=== PATIENT | male | born 1995 | race Hispanic/Latino ===

== ENCOUNTER 2019-09-10 15:42 | Inpatient (IN) | payer SELFPAY ==
[~2019-09-10] VITALS: Ht 167.6 cm; Wt 80.0 kg
--- NOTE | 2019-09-10 15:45 | NUR ---
PT TO ROOM VIA WHEELCHIAR. PT DIAPHORETIC.
--- NOTE | 2019-09-10 16:00 | NUR ---
PT PALE AND DIAPHORETIC, C/O SUDDEN ONSET PERIUMBILICAL DISCOMFORT THAT STARTED THIS AM. PT DENIES DIARRHEA OR CONSTIPATION. PT ADMITS SLIGHT NAUSEA DENIES EMESIS. PT STATES HE "WAS WORKING IN THE [employer] TODAY".
[2019-09-10 16:12] LABS: HEMATOCRIT 43.9 % (39.0-50.0); HEMOGLOBIN 15.7 g/dl (14.0-18.0); IMMATURE GRANULOCYTES 0.6 % (0.0-5.0); MEAN CELL VOLUME 85.4 fL CALC (80.0-100.0); MEAN CORPUSCULAR HGB 30.5 pG CALC (26.0-32.0); MEAN CORPUSCULAR HGB CONC 35.8 g/dL CAL (32.0-36.0); NEUT# 8.55 thou/uL (1.82-7.42); RED BLOOD COUNT 5.14 mill/uL (4.70-6.10); RED CELL DISTRI WIDTH 12.5 % (11.5-15.5)
[2019-09-10 16:26] LABS: ALBUMIN 5.4 g/dL (3.2-5.0); ALKALINE PHOSPHATASE 109 u/l (38-126); ANION GAP 19 (6-22 (CALC)); BILIRUBIN, TOTAL 0.9 mg/dL (0.0-1.4); BUN 16 mg/dL (9-20); BUN/CREATININE RATIO 18 (12-20 (CALC)); CARBON DIOXIDE 17 mmol/l (22-30); CHLORIDE 109 mmol/l (95-108); CPK 336 u/l (52-200); CREATININE 0.9 mg/dL (0.7-1.3); GFR > 60 ML/MIN (>=60 (CALC)); GFR FOR AFR.AMER. > 60 ML/MIN (>=60 (CALC)); POTASSIUM 3.9 mmol/l (3.5-5.1); SGOT/AST 55 u/l (17-59); SODIUM 140 mmol/l (137-146); TOTAL PROTEIN 8.5 g/dL (6.3-8.2)
--- NOTE | 2019-09-10 16:30 | NUR ---
PT RESTING SUPINE WITH HOB ELEVATED. STATES MORE COMFORTABLE AT THIS TIME. SKIN DRY AND PINK. TOLERATING IVF BOLUS X2 WELL. UPDATED ON POC AND WAIT TIME
--- NOTE | 2019-09-10 17:20 | NUR ---
PT GAVE 70CC DARK DOUGLAS URINE SAMPLE. SENT TO LAB. PT TO CT VIA STRETCHER.
[2019-09-10 17:23] LABS: LIPASE 35662 u/l (23-300)
[2019-09-10 17:29] LABS: URINE BILIRUBIN - DIPSTICK NEGATIVE (NEGATIVE); URINE BLOOD DIPSTICK NEGATIVE (NEGATIVE); URINE COLOR YELLOW; URINE GLUCOSE - DIPSTICK NEGATIVE (NEGATIVE); URINE KETONE NEGATIVE (NEGATIVE); URINE LEUK ESTERASE NEGATIVE (NEGATIVE); URINE NITRITE - DIPSTICK NEGATIVE (Negative); URINE PROTEIN - DIPSTICK TRACE mg/dL (NEG-TRACE); URINE SPECIFIC GRAVITY >=1.030; URINE UROBILINOGEN - DIPSTICK 0.2 E.U./dL (0.2)
[2019-09-10 17:32] LABS: COCAINE NEGATIVE (NEGATIVE); METHADONE NEGATIVE (NEGATIVE); TETRAHYDROCANNABIONOL NEGATIVE (NEGATIVE); TRICYLIC ANTIDEPRESSANTS NEGATIVE (NEGATIVE)
[2019-09-10 17:33] LABS: BARBITURATES NEGATIVE (NEGATIVE); OXCYCODONE NEGATIVE (NEGATIVE)
--- NOTE | 2019-09-10 17:45 | NUR ---
MEDICATED WITH MORPHINE 4MH IV ORDERED FOR ABD PAIN 01/07. DENIES NAUSEA
--- NOTE | 2019-09-10 18:36 | NUR ---
Pt advised that he is in pain. EDP notified. New orders received
--- NOTE | 2019-09-10 18:44 | NUR ---
Pt medicated per EDP order
--- NOTE | 2019-09-10 18:47 | NUR ---
EDP at bedside to discuss clinical findings with pt
--- NOTE | 2019-09-10 19:02 | NUR ---
MEDICATED FOR NAUSEA. PT STATES PAIN 4/10 FROM [facility]IN [facility]. PT ASKING FOR ICE. REPORT TO TARIQ JOHNSONRN
--- NOTE | 2019-09-10 19:30 | NUR ---
WAITING ON BED ASSIGNMENT AND ORDERS. NAUSEA IMPROVED.
--- NOTE | 2019-09-10 19:55 | NUR ---
Admission Note Report Given to: YU ROSEN Transported by: X Wheelchair Stretcher Transported with: X Nurse Transporter X Patent IV O2 Demographic Analyst Location: ICU X [facility]
--- NOTE | 2019-09-10 20:00 | NUR ---
PT ARRIVED TO UNIT FROM ED VIA WC, ACCOMPANIED BY RN. PT TO ROOM 261. AMBULATES TO BED W/ STEADY, BALANCED GAIT. ORIENTED TO UNIT AND ROOM.
[2019-09-10 20:23] VITALS: BP 121/76
--- NOTE | 2019-09-10 20:45 | NUR ---
PHYSICAL ASSEMENT COMPLETE. VS TAKEN BY HAND BINDER CUTTER UPON ARRIVAL TO UNIT ASSESSED. PLAN OF CARE REVIEWED W/ PT, DENIES QUESTIONS, VERBALIZES UNDERSTANDING. DENIES NEEDS AT THIS TIME. CALL BRUCE WITHIN REACH, AGREES TO CALL PRN. BED LOCKED IN LOW POSITION W/ BEDRAILS UP X2, ITEMS WITHIN REACH.
--- NOTE | 2019-09-11 00:15 | NUR ---
PT APPEARS TO BE SLEEPING COMFORTABLY. NO APPARENT DISTRESS. RESPIRATIONS REGULAR AND UNLABORED.CALL BRUCE REMAINS WITHIN REACH. BED REMAINS LOCKED IN LOW POSITION W/ BEDRAILS UP X2, ITEMS REMAIN WITHIN REACH.
[2019-09-11 04:04] VITALS: BP 155/88
--- NOTE | 2019-09-11 05:17 | NUR ---
VS TAKEN BY EMS MANAGER @ 0404 ASSESSED. PHYSICAL ASSESMENT REMAINS UNCHANGED. PT RESTING IN BED, APPEARS COMFORTABLE. DENIES PAIN, DENIES NEEDS @ THIS TIME. BED REMAINS LOCKED IN LOW POSITION W/ BEDRAILS UP X2, ITEMS REMAIN WITHIN REACH. CALL BRUCE REMAINS WITHIN REACH, AGREES TO CALL PRN.
--- NOTE | 2019-09-11 07:05 | NUR ---
REPORT RECEIVED FROM CHICHORN;PT RESTING IN SEMI FOWLERS POSITION;INTRODUCED SELF TO PT AND POC DISCUSSED,TRANSLATION PROVIDED BY [facility] [employer];PT DENIES ANY CURRENT PAIN OR NEEDS;RESPIRATIONS EVEN AND UNLABORED ON RA;IV FLUIDS INFUSING WITH EASE PER ORDER;ALL SAFETY PRECAUTIONS IN PLACE WITH BED IN THE LOWEST POSITION AND CALL LIGHT IN REACH;WILL CONTINUE TO MONITOR
[2019-09-11 07:06] LABS: HEMATOCRIT 42.8 % (39.0-50.0); HEMOGLOBIN 14.7 g/dl (14.0-18.0); MEAN CELL VOLUME 89.5 fL CALC (80.0-100.0); MEAN CORPUSCULAR HGB 30.8 pG CALC (26.0-32.0); MEAN CORPUSCULAR HGB CONC 34.3 g/dL CAL (32.0-36.0); RED BLOOD COUNT 4.78 mill/uL (4.70-6.10); RED CELL DISTRI WIDTH 13.2 % (11.5-15.5)
[2019-09-11 07:23] LABS: BILIRUBIN, TOTAL 0.7 mg/dL (0.0-1.4); BUN 16 mg/dL (9-20); BUN/CREATININE RATIO 24 (12-20 (CALC)); CHLORIDE 110 mmol/l (95-108); CREATININE 0.7 mg/dL (0.7-1.3); GFR > 60 ML/MIN (>=60 (CALC)); GFR FOR AFR.AMER. > 60 ML/MIN (>=60 (CALC)); POTASSIUM 4.2 mmol/l (3.5-5.1); SGOT/AST 30 u/l (17-59); SODIUM 140 mmol/l (137-146)
[2019-09-11 07:34] LABS: ALBUMIN 3.9 g/dL (3.2-5.0); ALKALINE PHOSPHATASE 54 u/l (38-126); ANION GAP 11 (6-22 (CALC)); CARBON DIOXIDE 23 mmol/l (22-30); LIPASE 5895 u/l (23-300); TOTAL PROTEIN 6.4 g/dL (6.3-8.2)
--- NOTE | 2019-09-11 08:40 | NUR ---
PT RESTING IN SEMI FOWLERS POSITION,A&O X3;VS OBTAINED AND ASSESSMENT COMPLETED;PT REPORTS MINIMAL ABDOMINAL PAIN RATING 3/10 ON THE PAIN SCALE,PAIN SCALE AND REPORTING EDUCATED;RESPIRATIONS EVEN AND UNLABORED ON RA,CLEAR LUNG SOUNDS NOTED;ABDOMEN SOFT ON PALPATION AND ACTIVE IN ALL 4 QUADRANTS,TENDERNESS NOTED;STRONG PEDAL PULSES;SKIN INTACT;#20G TO RAC INFUSING NS @ 150ML/HR,SITE APPEARS HEALTHY;PT DENIES ANY ADDITONAL NEEDS AND IS ENCOURAGED TO CALL FOR ASSISTANCE IF NEEDED;CALL LIGHT IN REACH;WILL CONTINUE TO MONITOR
[2019-09-11 08:41] VITALS: BP 133/71
--- NOTE | 2019-09-11 11:35 | NUR ---
PT RESTING IN SEMI FOWLERS POSITION REPORTING NAUSEA,PT TO BE MEDICATED WITH PRN ZOFRAN 4MG IVP;RESPIRATIONS EVEN AND UNLABORED ON RA;PT DENIES ANY CURRENT PAIN;IV FLUIDS INFUSING WITH EASE PER ORDER;ASSESSMENT REMAINS UNCHANGED AT THIS TIME;ENCOURAGED TO CALL FOR ASSISTANCE IF NEEDED;CALL LIGHT IN REACH;WILL CONTINUE TO MONITOR
[2019-09-11 15:00] VITALS: BP 129/67
--- NOTE | 2019-09-11 15:45 | NUR ---
PT RESTING IN SEMI FOWLERS POSITION;RESPIRATIONS EVEN AND UNLABORED ON RA;PT DENIES ANY CURRENT PAIN OR NEEDS;IV FLUIDS INFUSING WITH EASE PER ORDER;ASSESSMENT REMAINS UNCHANGED AT THIS TIME;PT ENCOURAGED TO CALL FOR ASSISTANCE IF NEEDED;FALL PRECAUTIONS IN PLACE WITH CALL LIGHT IN REACH;WILL CONTINUE TO MONITOR
--- NOTE | 2019-09-11 16:50 | NUR ---
PT MEDICATED WITH PRN DILAUDID 1MG IVP AND ZOFRAN 4MG IVP FOR NAUSEA AND ABDOMINAL PAIN RATING 6/10 ON THE PAIN SCALE,WILL MONITOR FOR EFFECTIVENESS
--- NOTE | 2019-09-11 19:00 | NUR ---
REPORT RECEIVED FROM Finn HENDRICKSON LPN, CARE OF PT TAKEN OVER.
[2019-09-11 19:45] VITALS: BP 131/78
--- NOTE | 2019-09-11 20:30 | NUR ---
PHYSICAL ASSEMENT COMPLETE. VS TAKEN BY CHIQUITA @ 1945 ASSESSED. PT REPORTS N/V W/ ANY PO INTAKE AND REPORTS CONSTIPATION. PLAN OF CARE REVIEWED W/ PT, DENIES QUESTIONS, VERBALIZES UNDERSTANDING. DENIES NEEDS AT THIS TIME. CALL BRUCE WITHIN REACH, AGREES TO CALL PRN. BED LOCKED IN LOW POSITION W/ BEDRAILS UP X2, ITEMS WITHIN REACH.
[2019-09-12 03:10] VITALS: BP 115/73
--- NOTE | 2019-09-12 04:00 | NUR ---
VS TAKEN BY BIGHT MAKER @ 0317 ASSESSED. PT APPEARS TO BE SLEEPING COMFORTABLY. NO APPARENT DISTRESS. RESPIRATIONS REGULAR AND UNLABORED.CALL BRUCE REMAINS WITHIN REACH. BED REMAINS LOCKED IN LOW POSITION W/ BEDRAILS UP X2, ITEMS REMAIN WITHIN REACH.
--- NOTE | 2019-09-12 07:05 | NUR ---
REPORT RECEIVED FROM YU VALENTINO;PT APPEARS TO BE SLEEPING IN SEMI FOWLERS POSITION;NO S/S OF DISTRESS NOTED;RESPIRATIONS EVEN AND UNLABORED ON RA;IV FLUIDS INFUSING WITH EASE PER ORDER;ALL SAFETY PRECAUTIONS IN PLACE WITH BED IN THE LOWEST POSITION AND CALL LIGHT IN REACH;WILL CONTINUE TO MONITOR
--- NOTE | 2019-09-12 07:28 | NUR ---
LAB AT BEDSIDE
--- NOTE | 2019-09-12 08:20 | NUR ---
PT RESTING IN SEMI FOWLERS POSITION,A&O X3;VS OBTAINED AND ASSESSMENT COMPLETED;PT REPORTS MINIMAL ABDOMINAL PAIN RATING 2/10 ON THE PAIN SCALE,PAIN SCALE AND REPORTING EDUCATED;RESPIRATIONS EVEN AND UNLABORED ON RA,CLEAR LUNG SOUNDS;ABDOMEN DISTENDED/SOFT ON PALPATION AND ACTIVE IN ALL 4 QUADRANTS;PT REQUESTS MEDICATION FOR CONSTIPATION, LAST BM 09/10/19;PT MEDICATED WITH PRN MOM AND PRUNE JUICE;STONG PEDAL PULSES;SKIN INTACT;#20G TO RAC INFUSING NS @ 150ML/HR,SITE APPEARS HEALTHY;PT DENIES ANY ADDITIONAL NEEDS AT THIS TIME AND IS ENCOURAGED TO CALL FOR ASSISTANCE IF NEEDED;CALL LIGHT IN REACH;WILL CONTINUE
[2019-09-12 08:21] VITALS: BP 127/78
--- NOTE | 2019-09-12 11:05 | NUR ---
AT BEDSIDE DISCUSSING POC.
--- NOTE | 2019-09-12 11:25 | NUR ---
PT RESTING IN SEMI FOWLERS POSITION WATCHING TV;RESPIRATIONS EVEN AND UNLABORED ON RA;PT DENIES ANY CURRENT NEEDS;IV FLUIDS INFUSING WITH EASE PER ORDER;CLEAR LIQUID DIET REINFORCED;ASSESSMENT REMAINS UNCHANGED AT THIS TIME;ENCOURAGED TO CALL FOR ASSISTANCE IF NEEDED;CALL LIGHT IN REACH;WILL CONTINUE TO MONITOR
[2019-09-12 15:10] VITALS: BP 117/76
--- NOTE | 2019-09-12 15:45 | NUR ---
PT RESTING IN SEMI FOWLERS POSITION;RESPIRATIONS EVEN AND UNLABORED ON RA;PT DENIES CURRENT PAIN OR DISCOMFORTS;IV FLUIDS INFUSING WITH EASE PER ORDER;ALL SAFETY PRECAUTIONS IN PLACE WITH BED IN THE LOWEST POSITION AND CALL LIGHT IN REACH;WILL CONTINUE TO MONITOR
[2019-09-12 18:05] VITALS: BP 156/96
--- NOTE | 2019-09-12 18:13 | NUR ---
PT MEDICATED WITH PRN ZOFRAN 4MG IVP FOR NAUSEA PER REQUEST,WILL MONITOR FOR EFFECTIVENESS
[2019-09-12 18:50] VITALS: BP 154/86
--- NOTE | 2019-09-12 20:00 | NUR ---
PATIENT RESTING IN BED AT THIS TIME. AWAKE ALERT AND ORIENTED-SPANOISH SPEAKING ONLY. [facility] PORRAS IS ABLE TO TRANSLATE . STILL C/O ABD PAIN AND MEDICATED WITH DILAUDID 1MG IVP FOR PAIN. TAKING ONLY SMALL AMTS OF PO FLUIDS MEDICATED WITH LIBRIUM FOR ANXIETY. SAFETY PRECAUTIONS REINFORCED. CALL LIGHT IN REACH, WILL CONT TO MONITOR. ]
--- NOTE | 2019-09-13 04:27 | NUR ---
APPEARS SLEEPING AT THIS TIME WITH LINEN OVER HIS HEAD. RESPS ARE EVEN AND UNLABORED. IVF PATENT AND INFUSING AT 150CC/HR VIA LEFT AC SITE. CALL LIGHT IN REACH. WILL CONT TO MONITOR.
[2019-09-13 05:22] LABS: HEMATOCRIT 40.7 % (39.0-50.0); MEAN CELL VOLUME 90.6 fL CALC (80.0-100.0); MEAN CORPUSCULAR HGB 31.2 pG CALC (26.0-32.0); MEAN CORPUSCULAR HGB CONC 34.4 g/dL CAL (32.0-36.0); RED BLOOD COUNT 4.49 mill/uL (4.70-6.10); RED CELL DISTRI WIDTH 12.9 % (11.5-15.5)
[2019-09-13 05:50] LABS: ALBUMIN 3.3 g/dL (3.2-5.0); ALKALINE PHOSPHATASE 55 u/l (38-126); ANION GAP 11 (6-22 (CALC)); BILIRUBIN, TOTAL 0.8 mg/dL (0.0-1.4); BUN 9 mg/dL (9-20); BUN/CREATININE RATIO 14 (12-20 (CALC)); CARBON DIOXIDE 26 mmol/l (22-30); CHLORIDE 103 mmol/l (95-108); CREATININE 0.7 mg/dL (0.7-1.3); GFR > 60 ML/MIN (>=60 (CALC)); GFR FOR AFR.AMER. > 60 ML/MIN (>=60 (CALC)); LIPASE 831 u/l (23-300); POTASSIUM 3.8 mmol/l (3.5-5.1); SGOT/AST 20 u/l (17-59); SODIUM 136 mmol/l (137-146); TOTAL PROTEIN 5.9 g/dL (6.3-8.2)
--- NOTE | 2019-09-13 07:42 | NUR ---
RECIEVED REPORT FROM VERN NICHOLAS .PT RESTING IN SEMI FOLWERS POSTION. INTRODUCED SELF TO PT. PT EXPRESSES A PAIN 2/10 LOCATED IN THE STOMACH. BED IN LOWEST POSTION WITH CALL LIGHT IN REACH . WILL CONTINUE TO MONITOR.
[2019-09-13 08:23] VITALS: BP 132/80
--- NOTE | 2019-09-13 09:40 | NUR ---
PT RESTING IN SEMI FOWLERS POSITION. RESIRPATIONS EVEN AND UNLABORED. NORMAL HEART RHYTHM. STRONG RADIAL AND PEDAL PULSES.NO EDEMA. LOWER ABDOMEN TENDER WHEN PALPATED BUT DOES NOT APPEAR DISTENDED. PT EXPRESSES A 2/10 PAIN. LORATAB GIVEN. LAST BM WAS 09/10/19. MIRALAX WAS ORDERED AND GIVEN. NS INFUSING AT 150 ML/HR ORDERED. CALL LIGHT AND PHONE IN REACH WITH BED IN THE LOWEST POSTION. WILL CONTINUE TO MONITOR .
--- NOTE | 2019-09-13 11:39 | NUR ---
AT BEDSIDE DISCUSSING POC INCLUDING PLANS TO D/C HOME.TRANSLATION PROVIDED BY [employer];PT VERBALIZES UNDERSTANDING.
--- NOTE | 2019-09-13 12:00 | NUR ---
PT IN SEMI FOLWERS POSTION WATCHING TV. PT DENIES ANY PAIN OR DISCOMFORT. BREATHING IS EVEN AND UNLABORED. URINE OUTPUT OF 300CC. BED IN LOWEST POSTION WITH CALL LIGHT WITHIN REACH.
--- NOTE | 2019-09-13 14:59 | NUR ---
DISCHARGE INSTRUCTIONS AND EDUCATATION GIVEN TO PT. PT VERBALIZED HE UNDERSTOOD DISCHARGE INSTRUCTIONS. IV REMOVED WITH NO COMPLICATIONS. PT WAITING ON RIDE.
--- NOTE | 2019-09-13 15:13 | NUR ---
Discharge instructions given. Patient verbalizes understanding of same. Discharged in stable condition via Wheelchair to Home with family. All belongings sent with pt. PT LEFT VIA WHEELCHAIR IN STABLE CONDITION. ACCOMPANIED BY KYRA SEPULVEDA
== END 2019-09-13 15:10 | disposition home or self-care (01) | DRG 440 ==
LOC: ED 15:42 → ED-I 18:39 → ED 18:50 → ED-I 18:51 → MS2 19:43
PROVIDERS: Family Medicine; Nurse Practitioner Family; ADMIT Internal Medicine; ATTEND Internal Medicine
DX: K85.20 Alcohol induced acute pancreatitis without necrosis or infection (principal); K86.0 Alcohol-induced chronic pancreatitis; F10.10 Alcohol abuse, uncomplicated; R16.2 Hepatomegaly with splenomegaly, not elsewhere classified
CPT/HCPCS: J1650; J2060; Q9967